=== PATIENT | female | born 1980 | race Caucasian/White ===

== ENCOUNTER → 2021-01-15 | Day surgery (SDC) | payer OTHER ==
[~2021-01-15] MED LIST: BIOTIN TOP; CLEOCIN HCL300 MG PO; HYDROCODON-ACE1 EAC4 PO; IBUPROFEN600 MG PO; METOPROLOL TART25 MG PO; MULTIVITAMIN PATCH TOP; NORCO 5-325 TA1 EACH PO; PRENATAL COMPL1 EACH PO; SYNTHROID25 MCG PO; VITAMIN B TOP; VITAMIN C500 M4 PO; Viscous lidocaine2% TOP; ZOFRAN4 MG PO
[2021-01-15 09:10] LABS: HEMOGLOBIN 14.4 gm/dl (12.3-15.3); RED BLOOD COUNT 4.72 M/UL (4.00-5.10); WHITE BLOOD COUNT 5.4 K/UL (4.5-11.0)
== END | disposition home or self-care (01) ==
LOC: OR 08:45
PROVIDERS: Obstetrics & Gynecology; Thoracic Surgery (Cardiothoracic Vascular Surgery)
PROC: 0UBMXZZ Excision of Vulva, External Approach (ICD-10-PCS; principal; 2021-01-15 09:20)
DX: N76.4 Abscess of vulva (principal); N76.2 Acute vulvitis; E03.9 Hypothyroidism, unspecified; I10 Essential (primary) hypertension; Z88.0 Allergy status to penicillin; Z88.1 Allergy status to other antibiotic agents; Z88.2 Allergy status to sulfonamides; Z79.2 Long term (current) use of antibiotics; Z79.899 Other long term (current) drug therapy; Z20.822 Contact with and (suspected) exposure to COVID-19
CPT/HCPCS: 36415; 81001; 84702; 85025; 93005; J1100; J2001; J2250; J2405; J2704; J2795; J3010; J7120

== ENCOUNTER 2022-04-01 12:56 | Outpatient (CLI) | payer OTHER ==
[2022-04-01 14:03] LABS: HEMOGLOBIN 10.6 gm/dl (12.3-15.3); RED BLOOD COUNT 3.86 M/UL (4.00-5.10); WHITE BLOOD COUNT 8.2 K/UL (4.5-11.0)
[2022-04-02] MEDS ORDERED: PRENATAL VITAM1 EAC6 PO (06:42)
[2022-04-02] MEDS ORDERED: FOLIC ACID1 MG PO (06:43)
[2022-04-02] MEDS ORDERED: COLACE 100MG C100 MG PO (08:35)
[2022-04-02] MEDS ORDERED: IBUPROFEN600 MG PO (08:35)
[2022-04-02] MEDS ORDERED: HYDROCODON-ACE1 EAC6 PO (08:35)
== END 2022-04-01 14:17 | disposition home or self-care (01) ==
LOC: GENOP 12:56
PROVIDERS: Obstetrics & Gynecology
DX: Z01.812 Encounter for preprocedural laboratory examination (principal)
CPT/HCPCS: 36415; 81001; 85025

== ENCOUNTER 2022-04-02 05:30 | Inpatient (IN) | payer OTHER ==
[~2022-04-02] VITALS: Ht 157.5 cm; Wt 106.6 kg
[2022-04-02] MEDS ORDERED: PRENATAL VITAM1 EAC6 PO (06:42)
[2022-04-02] MEDS ORDERED: FOLIC ACID1 MG PO (06:43)
[2022-04-02] MEDS ORDERED: IBUPROFEN600 MG PO (08:35)
[2022-04-02] MEDS ORDERED: COLACE 100MG C100 MG PO (08:35)
[2022-04-02] MEDS ORDERED: HYDROCODON-ACE1 EAC6 PO (08:35)
[2022-04-03 06:50] LABS: HEMOGLOBIN 9.7 gm/dl (12.3-15.3)
== END 2022-04-03 14:46 | disposition home or self-care (01) | DRG 788 ==
LOC: OB 05:30
PROVIDERS: ADMIT Obstetrics & Gynecology
PROC: 4A1HXCZ Monitoring of Products of Conception, Cardiac Rate, External Approach (ICD-10-PCS; 2022-04-02)
PROC: 3E0234Z Introduction of Serum, Toxoid and Vaccine into Muscle, Percutaneous Approach (ICD-10-PCS; 2022-04-02)
PROC: 10D00Z1 Extraction of Products of Conception, Low, Open Approach (ICD-10-PCS; principal; 2022-04-02 07:30)
DX: O34.211 Maternal care for low transverse scar from previous cesarean delivery (principal); Z20.822 Contact with and (suspected) exposure to COVID-19; Z3A.39 39 weeks gestation of pregnancy; Z37.0 Single live birth; Z98.84 Bariatric surgery status; Z90.49 Acquired absence of other specified parts of digestive tract; Z88.1 Allergy status to other antibiotic agents; Z88.0 Allergy status to penicillin; Z88.8 Allergy status to other drugs, medicaments and biological substances; Z83.49 Family history of other endocrine, nutritional and metabolic diseases; Z82.49 Family history of ischemic heart disease and other diseases of the circulatory system; Z82.5 Family history of asthma and other chronic lower respiratory diseases; Z80.9 Family history of malignant neoplasm, unspecified; Z23 Encounter for immunization
CPT/HCPCS: 82800; 85014; 85018; 90715; 96372; C9113; J1170; J1580; J2250; J2370; J2405; J2590